=== PATIENT | male | born 1940 | race Native Hawaiian/Other Pacific Islander ===

== ENCOUNTER 2016-03-19 11:24 | Observation (INO) | payer OTHER ==
[2016-03-19] VITALS (7 sets, daily range): BP systolic 130–164; BP diastolic 64–86; TEMP 98.2–98.6; Ht 167.6 cm; Wt 83.5 kg
[~2016-03-19] VITALS: Ht 167.6 cm; Wt 83.5 kg
[2016-03-19 13:07] LABS: PLATELET COUNT 255 K/uL (142-355)
[2016-03-19 16:34] LABS: POTASSIUM 4.2 mmol/L (3.6-5.2)
--- NOTE | 2016-03-19 17:55 | NUR ---
PT TO ROOM 1114 VIA WC FROM ER. PT ALERT AND ORIENTED AT THIS TIME WITH DAUGHTER AT BS. NAD NOTED AT THIS TIME. ABD DISTENTION NOTED. ORIENTED PT TO ROOM AND CONTROLS. PT V/U. ASSESSMENT COMPLETE, IV SALINE LOCK INTACT TO R HAND.
--- NOTE | 2016-03-19 18:20 | NUR ---
UPON ENTERING PT'S ROOM TO INFORM OF NPO STATUS. PT EATING SUPPER TRAY. INFORMED PT AND CUSTOMS OFFICER NURSE OF NPO STATUS FOR TEST IN AM. DR DANIELS AWARE PER RADIOLOGY OF CT SCAN TO BE IN AM DUE TO PT EATING.
[2016-03-20 08:00] VITALS: BP 151/92; TEMP 98
--- NOTE | 2016-03-20 09:11 | NUR ---
PT WAS ORDERED TO HAVE SOAPS SUDS ENEMA LAST NIGHT. WAS NOT GIVEN. PT STATES HE HAS HAD BOWEL MOVEMENT AFTER CT CONTRAST WAS GIVEN. NOTIFIED
[2016-03-20 12:01] VITALS: BP 187/47; TEMP 98.5
--- NOTE | 2016-03-20 12:41 | NUR ---
AM MEDS GIVEN AT THIS TIME PER DR DANIELS. CT REPORTED TO DR DANIELS
[2016-03-20 13:32] LABS: PLATELET COUNT 226 K/uL (142-355)
[2016-03-20 14:08] LABS: POTASSIUM 3.8 mmol/L (3.6-5.2)
[2016-03-20 16:00] VITALS: BP 146/91; TEMP 99.2
[2016-03-20 20:14] VITALS: BP 136/71; TEMP 98.5
[2016-03-21 00:27] VITALS: BP 162/86; TEMP 98.3
[2016-03-21 05:42] VITALS: BP 184/90; TEMP 98.1
[2016-03-21 06:20] LABS: PLATELET COUNT 214 K/uL (142-355)
[2016-03-21 06:32] LABS: POTASSIUM 3.3 mmol/L (3.6-5.2); SODIUM 132 mmol/L (136-145)
[2016-03-21 08:00] VITALS: BP 180/98; TEMP 98.6
[2016-03-21 11:35] VITALS: BP 135/88; TEMP 98.5
--- NOTE | 2016-03-21 14:00 | NUR ---
DC INSTRUCTIONS GIVEN TO PT AND DAUGHTER. PT INSTRUCTED TO FOLLOW UP WITH PCP IN 5 DAYS AND TO CALL FOR APPT. PT V/U. IV DC'D WITH CANNULA INTACT AND SITE CARE PROVIDED. PT LEFT VIA WC WITH TECH AT THIS TIME. NAD NOTED.
== END 2016-03-21 14:00 | disposition home or self-care (01) ==
LOC: ED 11:24 → MED/SURG 17:12
PROVIDERS: Internal Medicine; ADMIT Specialist
DX: E87.2 Acidosis (principal); K59.09 Other constipation; E05.80 Other thyrotoxicosis without thyrotoxic crisis or storm
CPT/HCPCS: 36415; 80053; 81000; 82550; 82553; 83605; 83735; 83880; 84100; 84439; 84443; 84484; 85027; 93005; 96374; 99220; 99284; G0378; J2270; J3411; J3475; J3490